=== PATIENT | female | born 1960 | race Caucasian/White ===

== ENCOUNTER 2017-01-06 10:42 | Emergency (ER) | payer OTHER ==
[~2017-01-06] VITALS: Ht 165.1 cm; Wt 108.5 kg
[2017-01-06 12:13] LABS: HEMATOCRIT 40.2 % (36.0-46.0); MCH 26.3 PG (29.0-34.0); MCHC 31.3 G/DL (30.0-36.0); MCV 83.9 FL (83-99); MEAN PLAT.VOLUME 10.9 uM^3 (9.5-12.4); PLATELET COUNT 236 K/uL (156-360); RBC DIS.WIDTH-SD 43.2 % (39-53); RED BLOOD COUNT 4.79 M/uL (3.80-5.20); WHITE BLOOD COUNT 6.6 K/uL (4.1-10.2)
[2017-01-06 12:41] LABS: ANION GAP 10 MEQ/L (2-14); CHLORIDE 102 MEQ/L (99-109); POTASSIUM 3.8 MEQ/L (3.7-5.4); SAMPLE HEMOLYSIS CHECK 0; SAMPLE ICTERIC CHECK 0; SAMPLE LIPEMIA CHECK 0; SODIUM 139 MEQ/L (136-147)
[2017-01-06 12:47] LABS: GFR ESTIMATE (CALCULATED) > 59 mL/min/; GLUCOSE 92 mg/dL (70-99); UREA NITROGEN (BUN) 11 mg/dL (9-23)
[2017-01-06 13:18] LABS: TROP-I INTERPRETATION NEGATIVE; TROPONIN-I < 0.01 ng/mL (0.0-0.30)
[2017-01-06 14:04] VITALS: BP 158/97
== END 2017-01-06 14:05 | disposition home or self-care (01) ==
LOC: EME 10:42
DX: R00.2 Palpitations (principal)
CPT/HCPCS: 71020; 80048; 84484; 85027; 93005; 99281; 99284

== ENCOUNTER 2017-07-27 10:17 | Emergency (ER) | payer OTHER ==
[~2017-07-27] VITALS: Ht 167.6 cm; Wt 110.7 kg
[2017-07-27 11:38] LABS: HEMATOCRIT 40.6 % (36.0-46.0); MCV 84.4 FL (83-99); PLATELET COUNT 229 K/uL (156-360); RBC DIS.WIDTH-CV 14.5 % (11.8-14.6); RBC DIS.WIDTH-SD 44.8 % (39-53); RED BLOOD COUNT 4.81 M/uL (3.80-5.20); WHITE BLOOD COUNT 6.8 K/uL (4.1-10.2)
[2017-07-27 11:48] LABS: ALBUMIN 4.3 g/dL (3.2-4.8); CHLORIDE 105 mEq/L (99-109); POTASSIUM 3.8 mEq/L (3.7-5.4); SODIUM 139 mEq/L (136-147)
[2017-07-27 11:50] LABS: GLUCOSE 112 mg/dL (70-99); TOTAL PROTEIN 7.4 g/dL (6.4-8.3)
[2017-07-27 11:52] LABS: TOTAL BILIRUBIN 0.3 mg/dL (0.0-1.0)
[2017-07-27 11:54] LABS: ALKALINE PHOSPHATASE 78 IU/L (3-129); CREATININE 0.7 mg/dL (0.6-1.3); GFR ESTIMATE (CALCULATED) > 59 mL/min/
[2017-07-27 11:55] LABS: AST (GOT) 26 IU/L (2-34); UREA NITROGEN (BUN) 9 mg/dL (9-23)
[2017-07-27 11:57] LABS: ALT (GPT) 57 IU/L (3-49); LIPASE 16 U/L (1.0-51.0)
[2017-07-27 11:59] LABS: TROP-I INTERPRETATION NEGATIVE; TROPONIN-I < 0.01 ng/mL (0.0-0.30)
[2017-07-27 13:13] VITALS: BP 124/59
== END 2017-07-27 13:13 | disposition home or self-care (01) ==
LOC: EME 10:17
PROVIDERS: Nurse Practitioner Family
DX: R10.11 Right upper quadrant pain (principal); R07.9 Chest pain, unspecified; M54.2 Cervicalgia; Z88.5 Allergy status to narcotic agent
CPT/HCPCS: 76705; 80053; 83690; 84484; 85027; 93005; 99281; 99284